=== PATIENT | male | born 1960 | race Caucasian/White ===

== ENCOUNTER → 2018-05-14 | Outpatient (CLI) | payer BC ==
[~2018-05-14] VITALS: Ht 175.3 cm; Wt 88.5 kg
[~2018-05-14] MED LIST: ALBUTEROL SULF8.5 GM IH; AMBIEN10 MG PO; AMBIEN5 MG PO; BENADRYL25 MG PO; CENTRUM SILVER1 EAC3 PO; DULERA 100 MCG/13 GM IH; LIPITOR80 MG PO; LO-DOSE ASPIRIN81 M2 PO; NON-ASPIRIN PA500 M1 PO; NORVASC5 MG PO; OMEPRAZOLE40 M1 PO; PREDNISONE50 MG PO; VIAGRA PO; ZYRTEC10 M3 PO
== END | disposition home or self-care (01) ==
LOC: AMB 10:14
DX: Z12.11 Encounter for screening for malignant neoplasm of colon (principal); D12.2 Benign neoplasm of ascending colon; D12.3 Benign neoplasm of transverse colon
CPT/HCPCS: 88305; 93005